=== PATIENT | male | born 1945 | race Caucasian/White ===

== ENCOUNTER 2019-04-25 17:39 | Emergency (ER) | payer MEDICARE, BC ==
--- NOTE | 2019-04-25 17:50 | EDM.PDOC ---
ED HPI GENERAL MEDICAL PROBLEM - General Chief Complaint: Gastrointestinal Problem Stated Complaint: bloody stools Time Seen by Provider: 04/25/19 17:43 Source of Information: Reports: Patient History Limitations: Reports: No Limitations - History of Present Illness INITIAL COMMENTS - FREE TEXT/NARRATIVE: Has been having lower abdominal pain about an hour ago. He has had 4 large bright red bloody stools since then with the last one being in the ER. Was told on his last colonoscopy that he had diverticulosis but has never had a problem with bleeding. Ate salmon for lunch but nothing unusual or any nuts etc. He denies any nausea with it. No lightheadedness. Does complain of cramping to lower abdomen. Denies any NSAID use but he uses multiple essential oils. Onset: Today Onset Date: 04/25/19 Onset Time: 17:00 Location: Reports: Abdomen Quality: Reports: Other (cramping) Associated Symptoms: Denies: Nausea/Vomiting Lower Abdominal Pain Score (Numeric/FACES): 3 - Related Data Allergies Allergy/AdvReac Type Severity Reaction Status Date / Time No Known Allergies Allergy Verified 04/25/19 18:03 Home Meds: Home Meds Ascorbic Acid [Vitamin C] 500 mg PO DAILY 06/30/18 [History] Cholecalciferol (Vitamin D3) [Vitamin D3] 5,000 unit PO DAILY 06/30/18 [History] Fish Oil/Whitney-3 Fatty Acids [Fish Oil 1,000 MG] 1 gm PO BID 06/30/18 [History] Magnesium 250 tab PO BID 06/30/18 [History] Prasterone (DHEA)/Calcium Carb [DHEA] 1 tab PO BEDTIME 06/30/18 [History] Vitamin E 400 unit PO DAILY 06/30/18 [History] Multivitamin [Daily Jabier] 1 each PO DAILY 07/02/18 [History] Thyroid [Lorton Thyroid] 75 mg PO BEDTIME 07/02/18 [History] Past Medical History Genitourinary History: Reports: BPH Endocrine/Metabolic History: Reports: Hyperthyroidism - Past Surgical History Respiratory Surgical History: Reports: None Social & Family History - Tobacco Use Smoking Status *Q: Never Smoker - Living Situation & Occupation Living situation: Reports: , with Spouse Occupation: Employed ED ROS GENERAL - Review of Systems Review Of Systems: See Below Constitutional: Denies: Fever, Chills HEENT: Reports: No Symptoms Respiratory: Reports: No Symptoms Cardiovascular: Reports: No Symptoms GI/Abdominal: Reports: Abdominal Pain, Bloody Stool, Diarrhea. Denies: Hematemesis, Nausea, Vomiting : Reports: No Symptoms Musculoskeletal: Reports: No Symptoms Skin: Reports: No Symptoms Neurological: Reports: No Symptoms ED EXAM, GI/ABD - Physical Exam Exam: See Below Exam Limited By: No Limitations General Appearance: Alert, WD/WN, Mild Distress Head: Atraumatic, Normocephalic Neck: Normal Inspection, Supple, Non-Tender Respiratory/Chest: No Respiratory Distress, Lungs Clear, Normal Breath Sounds Cardiovascular: Normal Peripheral Pulses, Regular Rate, Rhythm, No Edema GI/Abdominal Exam: Normal Bowel Sounds, Soft, Tender (mildy tender to the lower quadrants bilaterally. No guarding noted.) Rectal (Males) Exam: Bloody Stool, BPH, Heme + Stool. No: Hemorrhoids, Tenderness Back Exam: Normal Inspection, Full Range of Motion Extremities: Normal Inspection Neurological: Alert, Oriented Skin Exam: Warm, Dry, Intact Course - Vital Signs Last Recorded V/S: Last Vital Signs Temp 95.8 F 04/25/19 17:39 Pulse 90 04/25/19 17:39 Resp 18 04/25/19 17:39 BP 154/95 H 04/25/19 17:39 Pulse Ox 96 04/25/19 17:39 - Orders/Labs/Meds Orders: Active Orders 24 hr Category Date Time Status Abdomen 2V AP Flat Upright [CR] Stat Exams 04/25/19 17:44 Ordered C-REACTIVE PROTEIN [CHEM] Stat Lab 04/25/19 17:43 Received CBC WITH AUTO DIFF [HEME] Stat Lab 04/25/19 17:43 Received COMPREHENSIVE METABOLIC PN,CMP [CHEM] Stat Lab 04/25/19 17:43 Received - Re-Assessments/Exams Free Text/Narrative Re-Assessment/Exam: 04/25/19 18:[address] Murphy at [facility] and will accept in transfer 04/25/19 18:[address] Mauricio hospitalist at [facility] and he also accepted in transfer. Will transfer by ALS ambulance with NS running and Protonix given at this time. Departure - Departure Time of Disposition: 18:31 Disposition: DC/Tfer to Acute Hospital 02 Condition: Fair Clinical Impression: Diarrhea, Bleeding GI bleeding Qualifiers: GI bleed type/associated pathology: anorectal hemorrhage Qualified Code(s): K62.5 - Hemorrhage of anus and rectum - Discharge Information *PRESCRIPTION DRUG MONITORING PROGRAM REVIEWED*: Not Applicable *COPY OF PRESCRIPTION DRUG MONITORING REPORT IN PATIENT LUIS: Not Applicable Additional Instructions: Will transfer to [facility] per ALS with IV infusing Risks and benefits of transfer to include higher level of care with GI specialist available. risks of staying include Worsening of conditioning to include continuing to lose blood and potential for shock that could possible result in arrest. Pt and both voice understanding and wish to transfer. - Problem List & Annotations (1) GI bleeding SNOMED Code(s): 61735165 Code(s): K92.2 - GASTROINTESTINAL HEMORRHAGE, UNSPECIFIED Status: Acute Priority: High Current Visit: Yes Qualifiers: GI bleed type/associated pathology: anorectal hemorrhage Qualified Code(s) : K62.5 - Hemorrhage of anus and rectum (2) Bleeding SNOMED Code(s): 757799710 Code(s): R58 - HEMORRHAGE, NOT ELSEWHERE CLASSIFIED Status: Acute Priority: High Current Visit: Yes (3) Diarrhea SNOMED Code(s): 52118882 Code(s): R19.7 - DIARRHEA, UNSPECIFIED Status: Acute Priority: High Current Visit: Yes - My Orders Last 24 Hours: My Active Orders 04/25/19 17:44 Abdomen 2V AP Flat Upright [CR] Stat - Assessment/Plan Last 24 Hours: My Active Orders 04/25/19 17:44 Abdomen 2V AP Flat Upright [CR] Stat
[2019-04-25] MEDS: Sodium Chloride 0.9% 1,000 ML IV SCH (18:30)
[2019-04-25] MEDS: Pantoprazole 40 MG Vial IVPUSH SCH (18:30)
[2019-04-25] MEDS: Pantoprazole 80 MG in Sodium Chloride 0.9% 100 ML IV SCH (20:51)
[2019-04-25] MEDS: Sodium Chloride 0.9% 250 ML ONE (20:52)
== END 2019-04-25 21:01 ==
LOC: CC.ED 17:39
DX: R19.7 Diarrhea, unspecified (principal); R58 Hemorrhage, not elsewhere classified; E03.9 Hypothyroidism, unspecified; Z79.890 Hormone replacement therapy
CPT/HCPCS: 36415; 36430; 74019; 80053; 85018; 85025; 85610; 86140; 86850; 86900; 86901; 86920; 86922; 96361; 96374; 96376; 99284; 99285; C9113; J7030; J7050; P9016

== ENCOUNTER 2020-02-19 17:03 | Emergency (ER) | payer MEDICARE, BC ==
[2020-02-19] MEDS ORDERED: Acetaminophen/HYDROcodone 325-5 MG Tab PO ONE (17:04)
[2020-02-19] MEDS ORDERED: Cephalexin 500 MG Cap PO ONE (17:04)
[2020-02-19] MEDS ORDERED: Lidocaine 1% 20 ML MDV INJECT ONE (17:10)
--- NOTE | 2020-02-19 17:11 | EDM.PDOC ---
ED HPI GENERAL MEDICAL PROBLEM - General Chief Complaint: Laceration Stated Complaint: laceration Time Seen by Provider: 02/19/20 17:07 Source of Information: Reports: Patient History Limitations: Reports: No Limitations - History of Present Illness INITIAL COMMENTS - FREE TEXT/NARRATIVE: Patient to the emergency department where he advised he is hooking up a hitch and it slipped and caused a superficial avulsion to the right hand palmar side of the distal third digit. Bleeding is controlled with direct pressure. The patient's tetanus shot is less than 5 years. The patient denies any numbness or tingling to the finger. There is no swelling. The patient advised that his finger was not in a crush injury type situation. He advised that the hitch just toward the end of the skin off. No other symptoms Onset: Today Duration: Other (This prior to arrival) Location: Reports: Upper Extremity, Right (Right hand third digit distally as above) Quality: Reports: Ache Severity: Mild Improves with: Reports: None Worsens with: Reports: None Context: Reports: Trauma Associated Symptoms: Denies: Nausea/Vomiting Treatments FIRE MEDIC: Reports: Other (see below) (Direct pressure) Right Hand Pain Score (Numeric/FACES): 4 - Related Data Allergies Allergy/AdvReac Type Severity Reaction Status Date / Time No Known Allergies Allergy Verified 02/19/20 17:06 Home Meds: Home Meds Ascorbic Acid [Vitamin C] 500 mg PO DAILY 06/30/18 [History] Cholecalciferol (Vitamin D3) [Vitamin D3] 5,000 unit PO DAILY 06/30/18 [History] Fish Oil/Garner-3 Fatty Acids [Fish Oil 1,000 MG] 1 gm PO BID 06/30/18 [History] Magnesium 250 tab PO BID 06/30/18 [History] Multivitamin [Daily Jabier] 1 each PO DAILY 07/02/18 [History] Vitamin B Complex 1 ea PO DAILY 07/05/19 [History] Zinc Gluconate [Zinc] 30 mg PO DAILY 07/05/19 [History] cephALEXin [Keflex] 500 mg PO TID 5 Days #15 capsule 02/19/20 [Rx] Past Medical History Genitourinary History: Reports: BPH Endocrine/Metabolic History: Reports: Hyperthyroidism - Past Surgical History Respiratory Surgical History: Reports: None Social & Family History - Family History Family Medical History: Noncontributory - Caffeine Use Caffeine Use: Reports: Coffee - Living Situation & Occupation Living situation: Reports: , with Spouse Occupation: Employed ED ROS GENERAL - Review of Systems Review Of Systems: See Below Constitutional: Reports: No Symptoms Respiratory: Reports: No Symptoms Cardiovascular: Reports: No Symptoms GI/Abdominal: Reports: No Symptoms. Denies: Nausea, Vomiting Musculoskeletal: Reports: Other (Pain to the end of the right third digit/finger) Skin: Reports: Wound (Superficial avulsion as described above) Neurological: Reports: No Symptoms. Denies: Numbness, Tingling Psychiatric: Reports: No Symptoms ED EXAM, SKIN/RASH Exam: See Below Exam Limited By: No Limitations General Appearance: Alert, WD/WN, No Apparent Distress Head: Atraumatic, Normocephalic Neck: Normal Inspection, Supple, Non-Tender, Full Range of Motion Respiratory/Chest: No Respiratory Distress, Lungs Clear, Normal Breath Sounds, Chest Non-Tender Cardiovascular: Normal Peripheral Pulses, Regular Rate, Rhythm, No Murmur Peripheral Pulses: 2+: Radial (R) Back Exam: Normal Inspection, Full Range of Motion Extremities: Normal Range of Motion, Normal Capillary Refill, Other (As described above) Neurological: Alert, Oriented, Normal Cognition, Normal Gait, No Motor/Sensory Deficits Psychiatric: Normal Affect Skin: Warm, Dry, Normal Color, Other (Superficial avulsion approximately a dime size to the palmar side of the right hand distal third digit) ED SKIN PROCEDURES - Laceration/Wound Repair Right Upper Anterior Hand Appearance: Superficial, Other (Superficial avulsion approximately a dime sized to the right third digit distally on palmar side) Distal NVT: Neuro & Vascular Intact Anesthetic Type: Digital Local Anesthesia - Lidocaine (Xylocaine): 1% Plain Local Anesthetic Volume: Other (3 mL on each side of the digit) Skin Prep: Saline Exploration/Debridement/Repair: Wound Explored, In a Bloodless Field, Explored to Base Sterile Dressing Applied: Provider Tetanus Status Addressed: Yes Complications: No Progress/Comments: The wound was completely cleaned, and then the wound was cauterized. Bleeding is controlled. Sterile dressing nonstick was applied and secured with [place]. Patient tolerated procedure well Course - Vital Signs Text/Narrative:: The patient was evaluated in the emergency department, the patient's finger was cleaned, and then cauterized, bleeding controlled the finger was dressed appropriately. The patient was given Keflex 500 mg 3 times a day for 5 days. He was also given [place] 5/325mg 1 every 6 hours as needed for pain #4. The patient is advised to follow-up the family doctor later this week and return emergency department sooner if worse or any problems. The patient was advised after 24 hours leave the wound open to air as much as possible. Last Recorded V/S: Last Vital Signs Temp 36.9 C 02/19/20 17:03 Pulse 76 02/19/20 17:03 Resp 16 02/19/20 17:03 BP 191/97 H 02/19/20 17:03 Pulse Ox 94 L 02/19/20 17:03 - Orders/Labs/Meds Meds: Medications Discontinued Medications Generic Name Dose Route Start Last Admin Trade Name Keyla PRN Reason Stop Dose Admin Hydrocodone Bitart/Acetaminophen 2 packet 02/19/20 17:46 02/19/20 17:50 Take Home: Acetaminophen/Hydrocod, 2 Tab Pack PO 02/19/20 17:47 2 packet ONETIME ONE Administration Cephalexin 1 packet 02/19/20 17:46 02/19/20 17:50 Take Home: Cephalexin 500 Mg, 4 Cap Pack PO 02/19/20 17:47 1 packet ONETIME ONE Administration Lidocaine HCl 20 ml 02/19/20 17:10 02/19/20 17:17 Xylocaine 1% INJECT 02/19/20 17:11 6 ml ONETIME ONE Administration Silver Nitrate 6 each 02/19/20 17:33 02/19/20 17:34 Silver Nitrate TOP 02/19/20 17:34 6 each ONETIME ONE Administration Departure - Departure Time of Disposition: 17:42 Disposition: Home, Self-Care 01 Condition: Good Clinical Impression: Avulsion of skin of finger - Discharge Information *PRESCRIPTION DRUG MONITORING PROGRAM REVIEWED*: Not Applicable *COPY OF PRESCRIPTION DRUG MONITORING REPORT IN PATIENT LUIS: Not Applicable Prescriptions: cephALEXin [Keflex] 500 mg PO TID 5 Days #15 capsule Instructions: Wound Care, Adult, Laceration Care, Adult, [id number] Forms: ED Department Discharge Additional Instructions: Keep the wound clean and dry Keflex 500 mg 3 times a day for 5 days [place] 5/325 mg 1 every 6 hours as needed for pain Follow-up with your family doctor towards the end of this week Return to the emergency department sooner if worse or any problems Sepsis Event Note (ED) - Evaluation Sepsis Screening Result: No Definite Risk - Focused Exam Vital Signs: Vital Signs Temp Pulse Resp BP Pulse Ox 02/19/20 17:03 36.9 C 76 16 191/97 H 94 L - Problem List & Annotations (1) Avulsion of skin of finger SNOMED Code(s): 139317589, 823353529 Code(s): S61.209A - UNSP OPEN WOUND OF UNSP FINGER W/O DAMAGE TO NAIL, INIT Status: Acute Priority: Medium Qualifiers: Encounter type: initial encounter Qualified Code(s): S61.209A - Unspecified open wound of unspecified finger without damage to nail, initial encounter - Problem List Review Problem List Initiated/Reviewed/Updated: Yes - Assessment/Plan Plan: The patient's past medical history, past surgical history, social history, and past family medical history viewed see the nursing notes for details
[2020-02-19] MEDS ORDERED: Silver Nitrate Applicator Each TOP ONE (17:33)
[2020-02-19] MEDS ORDERED: Take Home: Cephalexin 500 MG Cap, 4 Cap Pack PO ONE (17:46)
[2020-02-19] MEDS ORDERED: Take Home: Acetaminophen/HYDROcodone 325-5 MG, 2 Tab Pack PO ONE (17:46)
== END 2020-02-19 18:00 | disposition home or self-care (01) ==
LOC: CC.ED 17:03
DX: S61.212A Laceration without foreign body of right middle finger without damage to nail, initial encounter (principal); E05.90 Thyrotoxicosis, unspecified without thyrotoxic crisis or storm; Z79.899 Other long term (current) drug therapy; W01.0XXA Fall on same level from slipping, tripping and stumbling without subsequent striking against object, initial encounter
CPT/HCPCS: 12001; 99282; 99283; A9270; J2001

== ENCOUNTER → 2021-11-20 | Day surgery (SDC) | payer MEDICARE, BC ==
[2021-11-20] MEDS: Lactated Ringers 1,000 ML IV SCH (12:40)
[2021-11-20] MEDS: Benzocaine 20% Oral Spray 59.2 ML Canister MUCMEM ONE (12:59)
[2021-11-20] MEDS: Meperidine PF 25 MG/ML SDV IVPUSH ONE (13:01)
[2021-11-20] MEDS: Midazolam 1 MG/ML 2 ML SDV IVPUSH ONE ×2 (13:02→13:04)
[2021-11-20 14:40] VITALS: BP 132/67; PULSE 52
== END ==
LOC: CC.SDS 11:50
PROVIDERS: ATTEND Family Medicine
DX: K29.60 Other gastritis without bleeding (principal); K44.9 Diaphragmatic hernia without obstruction or gangrene; E78.00 Pure hypercholesterolemia, unspecified; E03.9 Hypothyroidism, unspecified; I10 Essential (primary) hypertension; N40.0 Benign prostatic hyperplasia without lower urinary tract symptoms; Z79.899 Other long term (current) drug therapy; Z79.890 Hormone replacement therapy
CPT/HCPCS: 87081; J2175; J2250; J7120